=== PATIENT | female | born 1940 | race Two or more races ===

== ENCOUNTER 2024-08-08 10:32 | Inpatient (IN) | payer OTHER ==
[~2024-08-08] VITALS: Ht 149.9 cm; Wt 52.6 kg
[2024-08-08 11:39] LABS: CALCIUM, SERUM 10.8 mg/dL (8.5-10.1); CARBON DIOXIDE 24 mmol/L (21-32); CHLORIDE 106 mmol/L (98-107); CREATININE 0.7 mg/dL (0.6-1.3); GLUCOSE 115 mg/dL (74-106); POTASSIUM 3.4 mmol/L (3.5-5.1); SODIUM SERUM 140 mmol/L (136-145); UREA NITROGEN, BLOOD 27 mg/dL (7-18)
[2024-08-08 11:40] LABS: APPEARANCE,URINE CLEAR (CLEAR); BILIRUBIN,URINE NEGATIVE (NEGATIVE); BLOOD, URINE NEGATIVE Ery/uL (NEGATIVE); COLOR,URINE YELLOW (YELLOW); KETONES,URINE NEGATIVE (NEGATIVE); LEUKOCYTE ESTERASE ,URINE 2+ (NEGATIVE); NITRITE, URINE NEGATIVE (NEGATIVE); PROTEIN,URINE NEGATIVE (NEGATIVE); UGLUCOSE NEGATIVE (NEGATIVE); UROBILINOGEN,URINE 0.2 EU/dL (0.2)
[2024-08-08 11:40] LABS: BASOPHILS % (AUTO) 0.4 % (0.0-2.0); EOSINOPHILS # (AUTO) 0.2 K/uL (0.0-0.7); EOSINOPHILS % (AUTO) 2.3 % (0.0-6.0); HEMATOCRIT 35 % (33-45); HEMOGLOBIN 11.4 g/dL (11.5-14.8); LYMPHOCYTES # (AUTO) 1.5 K/uL (0.8-4.8); LYMPHOCYTES % (AUTO) 18.1 % (20.0-44.0); MEAN CORPUSCULAR HEMOGLOBIN 26 PG (26.0-33.0); MEAN CORPUSCULAR HGB CONC 33 g/dl (31.0-36.0); MEAN CORPUSCULAR VOLUME 81 fL (82-100); MONOCYTES # (AUTO) 0.6 K/uL (0.1-1.30); MONOCYTES % (AUTO) 6.8 % (2.0-12.0); NEUTROPHILS # (AUTO) 6.1 K/uL (1.8-8.9); NEUTROPHILS % (AUTO) 72.4 % (43.0-81.0); PLATELET COUNT (AUTO) 224 K/uL (150-450); RED BLOOD CELL COUNT(AUTO) 4.31 MIL/uL (4.0-5.2); RED CELL DISTRIBUTION WIDTH 12.4 % (11.5-15.0); WHITE BLOOD COUNT (AUTO) 8.5 K/uL (4.3-11.0)
[2024-08-08 11:48] LABS: ALANINE AMINOTRANSFERASE 34 U/L (12-78); ALBUMIN 2.9 g/dL (3.4-5.0); ALKALINE PHOSPHATASE 370 U/L (46-116); ASPARTATE AMINOTRANSFERASE 22 U/L (15-37); BILIRUBIN,DIRECT 0.2 mg/dL (0.0-0.2); BILIRUBIN,TOTAL 0.7 mg/dL (0.2-1.0); TOTAL PROTEIN, SERUM 6.8 g/dL (6.4-8.2)
[2024-08-08 11:49] LABS: AMPHETAMINE, URINE NEGATIVE (NEGATIVE); BARBITURATE, URINE NEGATIVE (NEGATIVE); BENZODIAZEPINE, URINE NEGATIVE (NEGATIVE); CANNABINOID, URINE NEGATIVE (NEGATIVE); COCCAINE, URINE NEGATIVE (NEGATIVE); OPIATE, URINE NEGATIVE (NEGATIVE); PHENCYCLIDINE SCREEN,URINE NEGATIVE (NEGATIVE)
[2024-08-08 11:50] LABS: ADD URINE CULTURE YES; RBC,URINE 0-2 /HPF (0-2); SQUAMOUS EPITHELIAL CELL,UR Moderate /HPF (None Seen)
[2024-08-08 11:51] LABS: BACTERIA,URINE Moderate /HPF (None Seen)
[2024-08-08 11:54] LABS: ACETAMINOPHEN <10 ug/ml (10-30); ALCOHOL, BLOOD < 3 mg/dL (0-10); SALICYLATE < 0.2 mg/dL (2.8-20.0)
[2024-08-08] MEDS ORDERED: OMEP20CA15 PO (12:24)
[2024-08-08] MEDS ORDERED: AMLO-213 PO (12:24)
[2024-08-08] MEDS ORDERED: MIRABEGRON PO (12:24)
[2024-08-08] MEDS ORDERED: METO-357 PO (12:24)
[2024-08-08] MEDS ORDERED: ATOR80TA PO (12:24)
[2024-08-08] MEDS ORDERED: CEPHALEXIN MONOHYDRATE 500 MG CAPSULE PO ONE (12:28)
[2024-08-08] MEDS: CEPHALEXIN MONOHYDRATE 500 MG CAPSULE PO ONE (12:34)
[2024-08-08 14:45] LABS: THYROID STIMULATING HORMONE < 0.007 uIU/mL (0.358-3.74)
[2024-08-08] MEDS ORDERED: MAG HYDROX/AL HYDROX/SIMETH 30 ML UDC PO PRN (22:00)
[2024-08-08] MEDS ORDERED: Z GUARD REMEDY 4 OZ OINT TP PRN (22:00)
[2024-08-08] MEDS ORDERED: MAGNESIUM HYDROXIDE 30 ML UDC PO PRN (22:00)
[2024-08-08] MEDS ORDERED: ZOLPIDEM TARTRATE 5 MG TABLET PO PRN ×2 (22:00)
[2024-08-08] MEDS ORDERED: LORAZEPAM 0.5 MG TABLET PO PRN (22:00)
[2024-08-08] MEDS ORDERED: ACETAMINOPHEN 325 MG TABLET PO PRN (22:00)
[2024-08-08] MEDS: BLOOD SUGAR DIAGNOSTIC 1 EACH STRIP IN ONE (22:24)
[2024-08-08] MEDS: LORAZEPAM 0.5 MG TABLET PO PRN (23:24)
[2024-08-08 23:29] VITALS: BP 125/74; TEMP 98.2; O2SAT 98
[2024-08-09 07:55] LABS: THYROID STIMULATING HORMONE < 0.007 uIU/mL (0.358-3.74)
[2024-08-09 08:00] VITALS: BP 151/75; TEMP 97.8; O2SAT 93
[2024-08-09] MEDS: NITROFURANTOIN/MONOHYDRATE MACROCRYSTALS 100 MG CAPSULE PO SCH (09:09)
[2024-08-09] MEDS: AMLODIPINE BESYLATE 10 MG TABLET PO SCH (09:10)
[2024-08-09] MEDS: ATORVASTATIN 40 MG TABLET PO SCH (09:10)
[2024-08-09] MEDS: PANTOPRAZOLE 40 MG TABLET.DR PO SCH (09:11)
[2024-08-09] MEDS: METHIMAZOLE (5MG) 5 MG TABLET PO SCH (10:21)
[2024-08-09] MEDS: POTASSIUM CHLORIDE 20 MEQ TAB.PRT.SR PO ONE (10:56)
[2024-08-09] MEDS: LITHIUM CARBONATE 150 MG CAPSULE PO SCH (13:23)
[2024-08-09 13:33] LABS: THYROID STIMULATING HORMONE < 0.007 uIU/mL (0.358-3.74)
[2024-08-09 16:00] VITALS: BP 126/52; TEMP 98; O2SAT 99
[2024-08-09 20:44] VITALS: BP 132/75; TEMP 98.1; O2SAT 99
[2024-08-09] MEDS: QUETIAPINE FUMARATE 25 MG TABLET PO SCH (21:12)
[2024-08-09] MEDS ORDERED: METOPROLOL SUCCINATE 50 MG TAB.SR.24H PO ONE (21:31)
[2024-08-09] MEDS: METOPROLOL SUCCINATE 50 MG TAB.SR.24H PO SCH (21:36)
[2024-08-09] MEDS ORDERED: MIRABEGRON 25 MG PO SCH (22:00)
[2024-08-10 07:09] LABS: BASOPHILS % (AUTO) 0.4 % (0.0-2.0); EOSINOPHILS # (AUTO) 0.3 K/uL (0.0-0.7); EOSINOPHILS % (AUTO) 3.5 % (0.0-6.0); HEMATOCRIT 35 % (33-45); HEMOGLOBIN 11.4 g/dL (11.5-14.8); LYMPHOCYTES # (AUTO) 1.6 K/uL (0.8-4.8); LYMPHOCYTES % (AUTO) 20.6 % (20.0-44.0); MEAN CORPUSCULAR HEMOGLOBIN 27 PG (26.0-33.0); MEAN CORPUSCULAR HGB CONC 33 g/dl (31.0-36.0); MEAN CORPUSCULAR VOLUME 81 fL (82-100); MONOCYTES # (AUTO) 0.6 K/uL (0.1-1.30); MONOCYTES % (AUTO) 7.2 % (2.0-12.0); NEUTROPHILS # (AUTO) 5.4 K/uL (1.8-8.9); NEUTROPHILS % (AUTO) 68.3 % (43.0-81.0); PLATELET COUNT (AUTO) 227 K/uL (150-450); RED BLOOD CELL COUNT(AUTO) 4.28 MIL/uL (4.0-5.2); RED CELL DISTRIBUTION WIDTH 12.3 % (11.5-15.0); WHITE BLOOD COUNT (AUTO) 7.9 K/uL (4.3-11.0)
[2024-08-10 07:46] LABS: CHOLESTEROL 130 mg/dL (<200); HDL CHOLESTEROL 60 mg/dL (40-60); LDL 49 mg/dL (0-99); TRIGLYCERIDES 169 mg/dL (30-150)
[2024-08-10 07:51] LABS: ALBUMIN 2.8 g/dL (3.4-5.0); BILIRUBIN,TOTAL 0.3 mg/dL (0.2-1.0); CALCIUM, SERUM 11.2 mg/dL (8.5-10.1); CREATININE 0.7 mg/dL (0.6-1.3); PHOSPHORUS 3.8 mg/dL (2.5-4.9); POTASSIUM 4.1 mmol/L (3.5-5.1); TOTAL PROTEIN, SERUM 6.5 g/dL (6.4-8.2)
[2024-08-10 08:00] VITALS: BP 167/76; TEMP 97.7; O2SAT 96
[2024-08-10 10:13] LABS: THYROID STIMULATING HORMONE < 0.007 uIU/mL (0.358-3.74)
[2024-08-10] MEDS: LORAZEPAM 0.5 MG TABLET PO PRN (11:21)
[2024-08-10 20:50] VITALS: BP 128/55; TEMP 98.1; O2SAT 98
[2024-08-11 08:00] VITALS: BP 136/65; TEMP 98.6; O2SAT 98
[2024-08-11 08:10] LABS: FOLIC ACID 11.9 ng/mL (>3.0)
[2024-08-11 15:47] VITALS: BP 136/71; TEMP 98.4; O2SAT 98
[2024-08-11 19:47] VITALS: BP 137/72; TEMP 98.4; O2SAT 97
[2024-08-12 08:00] VITALS: BP 127/74; TEMP 97.7; O2SAT 100
[2024-08-12 08:06] LABS: BASOPHILS # (AUTO) 0.1 K/uL (0.0-0.2); BASOPHILS % (AUTO) 0.8 % (0.0-2.0); EOSINOPHILS # (AUTO) 0.3 K/uL (0.0-0.7); EOSINOPHILS % (AUTO) 3.6 % (0.0-6.0); HEMATOCRIT 35 % (33-45); HEMOGLOBIN 11.9 g/dL (11.5-14.8); LYMPHOCYTES # (AUTO) 1.9 K/uL (0.8-4.8); LYMPHOCYTES % (AUTO) 25.7 % (20.0-44.0); MEAN CORPUSCULAR HEMOGLOBIN 27 PG (26.0-33.0); MEAN CORPUSCULAR HGB CONC 34 g/dl (31.0-36.0); MEAN CORPUSCULAR VOLUME 81 fL (82-100); MONOCYTES # (AUTO) 0.6 K/uL (0.1-1.30); MONOCYTES % (AUTO) 8.2 % (2.0-12.0); NEUTROPHILS # (AUTO) 4.6 K/uL (1.8-8.9); NEUTROPHILS % (AUTO) 61.7 % (43.0-81.0); PLATELET COUNT (AUTO) 229 K/uL (150-450); RED BLOOD CELL COUNT(AUTO) 4.35 MIL/uL (4.0-5.2); RED CELL DISTRIBUTION WIDTH 12.3 % (11.5-15.0); WHITE BLOOD COUNT (AUTO) 7.5 K/uL (4.3-11.0)
[2024-08-12 08:55] VITALS: BP 127/74
[2024-08-12 10:40] LABS: ALANINE AMINOTRANSFERASE 30 U/L (12-78); ALBUMIN 2.8 g/dL (3.4-5.0); ALKALINE PHOSPHATASE 267 U/L (46-116); ASPARTATE AMINOTRANSFERASE 31 U/L (15-37); BILIRUBIN,TOTAL 0.4 mg/dL (0.2-1.0); CALCIUM, SERUM 11.2 mg/dL (8.5-10.1); CARBON DIOXIDE 21 mmol/L (21-32); CHLORIDE 110 mmol/L (98-107); CREATININE 0.8 mg/dL (0.6-1.3); GLUCOSE 103 mg/dL (74-106); MAGNESIUM 1.9 mg/dL (1.8-2.4); PHOSPHORUS 3.7 mg/dL (2.5-4.9); POTASSIUM 4.1 mmol/L (3.5-5.1); SODIUM SERUM 139 mmol/L (136-145); TOTAL PROTEIN, SERUM 6.5 g/dL (6.4-8.2); UREA NITROGEN, BLOOD 38 mg/dL (7-18)
== END 2024-08-12 15:10 | disposition home or self-care (01) | DRG 885 ==
LOC: ER 10:44 → GPS 20:35
PROVIDERS: ADMIT Psychiatry & Neurology Psychiatry; ATTEND Student in an Organized Health Care Education/Training Program
DX: F31.9 Bipolar disorder, unspecified (principal); N39.0 Urinary tract infection, site not specified; F03.93 Unspecified dementia, unspecified severity, with mood disturbance; F03.92 Unspecified dementia, unspecified severity, with psychotic disturbance; F03.918 Unspecified dementia, unspecified severity, with other behavioral disturbance; E44.0 Moderate protein-calorie malnutrition; F03.94 Unspecified dementia, unspecified severity, with anxiety; E87.6 Hypokalemia; D64.9 Anemia, unspecified; Z20.822 Contact with and (suspected) exposure to COVID-19; F39 Unspecified mood [affective] disorder; F29 Unspecified psychosis not due to a substance or known physiological condition; E05.90 Thyrotoxicosis, unspecified without thyrotoxic crisis or storm; Z73.6 Limitation of activities due to disability; R79.89 Other specified abnormal findings of blood chemistry; E88.09 Other disorders of plasma-protein metabolism, not elsewhere classified; Z85.3 Personal history of malignant neoplasm of breast; Z90.12 Acquired absence of left breast and nipple; I10 Essential (primary) hypertension; Z79.899 Other long term (current) drug therapy; F41.9 Anxiety disorder, unspecified; B96.89 Other specified bacterial agents as the cause of diseases classified elsewhere; E86.1 Hypovolemia; E83.52 Hypercalcemia; R53.1 Weakness
CPT/HCPCS: 36415; 70450-TC; 76536-TC; 80048-TC; 80053-TC; 80061-TC; 80076-TC; 81001; 82607-TC; 83735-TC; 83921; 83970; 84100-TC; 84425; 84439-TC; 84443-TC; 84481; 85025-TC; 87081-TC; 87086-TC; 97110-TC; 97116-TC; 97530-TC; G0480